=== PATIENT | female | born 1950 | race Caucasian/White ===

== ENCOUNTER 2016-11-01 10:32 | Emergency (ER) | payer MEDICARE, MEDICAID ==
[~2016-11-01] VITALS: Ht 167.6 cm; Wt 65.0 kg
[~2016-11-01 10:32] MED LIST: ALENDRONATE70 MG PO; ALPRAZOLAM0.5 MG PO; AMBIEN5 MG PO; BACTRIM DS1 TAB PO; CELEBREX100 M1 PO; CIPRO XR500 MG PO; CITRATE OF MEGNESIA PO; DILAUDID 2MG2 MG/TA1 PO; ERYTHROMYCIN250 MG PO; FLAGYL500 MG PO; FLEXERIL10 MG PO; FLEXERIL5 MG PO; GOLYTELY4000 ML PO; HYDROCODONE/ACE1 TAB PO; LORTAB 10 OR; LORTAB 5/3255 MG PO; LORTAB 7.5 OR; LORTAB 7.5 PO; LORTAB5 PO; LUNESTA1 MG PO; LYRICA75 MG PO; MEDDOSEPAK OR; MILK OF MAG30 ML/UDC PO; MULTI VIT PO; MULTIVITAMIN OR; NEOMYCIN500 MG PO; NO CURRENT MEDS; NO HOME MEDS; PAROXETINE20 MG PO; PREDNISONE10 MG PO; PREVACID30 M3 PO; PROBIOTIC DAILY1 CAP PO; PROMETHAZINE12.5 MG OR; REQUIP0.5 MG PO; TIZANIDINE HCL2 M1 PO; TRAMADOL HCL50 MG PO; ULTRAM50 M1 PO; ULTRAM50 MG OR; ZOFRAN ODT4 MG PO; ZOFRAN ODT8 MG OR
[2016-11-01 11:44] LABS: HEMATOCRIT 43.2 % (37.0-47.0); HEMOGLOBIN 13.3 g/dl (12.0-16.0); IMMATURE GRANULOCYTES 0.4 % (0.0-1.0); MEAN CELL VOLUME 78.5 fL CALC (80.0-100.0); MEAN CORPUSCULAR HGB 24.2 pG CALC (26.0-32.0); MEAN CORPUSCULAR HGB CONC 30.8 g/L CALC (32.0-36.0); NEUT# 5.87 thou/uL (2.00-7.15); RED BLOOD COUNT 5.5 mill/uL (4.20-5.60); RED CELL DISTRI WIDTH 16.8 % (11.5-15.5)
[2016-11-01 11:54] LABS: INTERNATIONAL NORMALIZED RATIO 0.9 RATIO (0.7-1.3); PROTHROMBIN TIME 10.2 SECONDS (9.0-12.5)
[2016-11-01 11:55] LABS: ALKALINE PHOSPHATASE 76 u/l (38-126); ANION GAP 16 (6-22 (CALC)); BUN 16 mg/dL (8-23); BUN/CREATININE RATIO 29 (12-20 (CALC)); CARBON DIOXIDE 24 mmol/l (22-30); CHLORIDE 104 mmol/l (95-108); CREATININE 0.6 mg/dL (0.5-1.0); GFR > 60 ML/MIN (>=60 (CALC)); GFR FOR AFR.AMER. > 60 ML/MIN (>=60 (CALC)); GLUCOSE 87 mg/dL (82-115); LIPASE 36 u/l (23-300); POTASSIUM 3.7 mmol/l (3.5-5.1); SGOT/AST 43 u/l (9-36); SGPT/ALT 56 u/l (11-66); SODIUM 140 mmol/l (137-146); TOTAL PROTEIN 7.6 g/dL (6.3-8.2)
[2016-11-01 12:07] LABS: MYOGLOBIN 37 ng/mL (0 - 62)
[2016-11-01 15:56] LABS: URINE BILIRUBIN - DIPSTICK NEGATIVE (NEGATIVE); URINE BLOOD DIPSTICK NEGATIVE (NEGATIVE); URINE CLARITY CLEAR; URINE COLOR YELLOW; URINE GLUCOSE - DIPSTICK NEGATIVE (NEGATIVE); URINE KETONE 40 mg/dL (NEGATIVE); URINE LEUK ESTERASE NEGATIVE (NEGATIVE); URINE NITRITE - DIPSTICK NEGATIVE (Negative); URINE PROTEIN - DIPSTICK NEGATIVE (NEG-TRACE); URINE SPECIFIC GRAVITY <=1.005; URINE UROBILINOGEN - DIPSTICK 0.2 E.U./dL (0.2)
[2016-11-01 19:43] VITALS: BP 147/65
== END 2016-11-01 19:43 | disposition other institution (70) ==
LOC: ED 10:32
PROVIDERS: Emergency Medicine
DX: R00.2 Palpitations (principal); R10.10 Upper abdominal pain, unspecified; R11.2 Nausea with vomiting, unspecified; J98.2 Interstitial emphysema; R07.81 Pleurodynia; Z85.038 Personal history of other malignant neoplasm of large intestine; Z98.890 Other specified postprocedural states
CPT/HCPCS: Q9967

== ENCOUNTER 2017-09-30 23:55 | Inpatient (IN) | payer MEDICARE, MEDICAID ==
[~2017-09-30] VITALS: Ht 167.6 cm; Wt 69.4 kg
[2017-10-01] VITALS (9 sets, daily range): BP systolic 110–147; BP diastolic 68–95
--- NOTE | 2017-10-01 00:10 | NUR ---
PT IMMEDIATLY BROOUGHT TO TX RM 10, MADE COMFORTABLE. MD AT BEDSIDE FOR EVALUATION.
[2017-10-01 00:44] LABS: HEMATOCRIT 44.2 % (37.0-47.0); HEMOGLOBIN 13.7 g/dl (12.0-16.0); IMMATURE GRANULOCYTES 0.4 % (0.0-1.0); MEAN CORPUSCULAR HGB 25.4 pG CALC (26.0-32.0); NEUT# 10.42 thou/uL (2.00-7.15); RED BLOOD COUNT 5.39 mill/uL (4.20-5.60); RED CELL DISTRI WIDTH 15.8 % (11.5-15.5)
--- NOTE | 2017-10-01 00:45 | NUR ---
A/O F WITH EPIGASTRIC ABD PAIN VOMITED X1 AT 4OM,HX BOWEL OBST AND CA COLON.PAIN FEELS LIKE BOWEL OBST
[2017-10-01 01:06] LABS: ALBUMIN 4.2 g/dL (3.2-5.0); ALKALINE PHOSPHATASE 112 u/l (38-126); AMYLASE 61 u/l (30-110); ANION GAP 20 (6-22 (CALC)); BILIRUBIN, TOTAL 0.4 mg/dL (0.0-1.4); BUN 21 mg/dL (8-23); BUN/CREATININE RATIO 29 (12-20 (CALC)); CARBON DIOXIDE 22 mmol/l (22-30); CHLORIDE 105 mmol/l (95-108); CREATININE 0.7 mg/dL (0.5-1.0); GFR > 60 ML/MIN (>=60 (CALC)); GFR FOR AFR.AMER. > 60 ML/MIN (>=60 (CALC)); LIPASE 103 u/l (23-300); POTASSIUM 4.5 mmol/l (3.5-5.1); SGOT/AST 29 u/l (9-36); SGPT/ALT 28 u/l (11-66); SODIUM 142 mmol/l (137-146); TOTAL PROTEIN 7.3 g/dL (6.3-8.2)
[2017-10-01 01:16] LABS: URINE BILIRUBIN - DIPSTICK NEGATIVE (NEGATIVE); URINE BLOOD DIPSTICK NEGATIVE (NEGATIVE); URINE COLOR YELLOW; URINE GLUCOSE - DIPSTICK NEGATIVE (NEGATIVE); URINE KETONE TRACE mg/dL (NEGATIVE); URINE LEUK ESTERASE NEGATIVE (NEGATIVE); URINE NITRITE - DIPSTICK NEGATIVE (Negative); URINE PROTEIN - DIPSTICK NEGATIVE (NEG-TRACE); URINE SPECIFIC GRAVITY >=1.030; URINE UROBILINOGEN - DIPSTICK 0.2 E.U./dL (0.2)
[2017-10-01 01:35] LABS: URINE CLARITY CLEAR
--- NOTE | 2017-10-01 02:50 | NUR ---
PATIENT ARRIVED TO THE FLOOR IN STABLE CONDITION VIA STRETCHER AND ACCOMPANIED BY ED NURSE. PT WEIGHED AND SETTLED TO BED. PATIENT ORIENTED X 3. ORIENT PATIENT TO ROOM CALL SYSTEM. BED IN LOW POSITION AND CALL LIGHT IN REACH.
--- NOTE | 2017-10-01 03:37 | NUR ---
PHONE REPORT TO WES OQUENDO ON MS
--- NOTE | 2017-10-01 03:47 | NUR ---
PT RTRANSPORTED TO [facility] VIA STRETCHER IN STABLE CONDITION
--- NOTE | 2017-10-01 06:38 | NUR ---
MARTHA COMMUNICATED WITH DR WHALEY AND HE WAS MADE AWARE OF CONSULTATION. HE WILL SEE PT TODAY.
--- NOTE | 2017-10-01 07:45 | NUR ---
PT IS RELAXING IN BED HAS AMBUALTED TO THE BATHROOM. IV SITE IS FREE FROM REDNESS OR EDEMA. HR IS REG,PULSES ARE STRONG X4, ABD IS SOFT WITH ACTIVE BS. CONTINU TO OBSERVE AND MONITOR.,
--- NOTE | 2017-10-01 08:30 | NUR ---
IN TO VISIT WITH PT AND WILL TAKE HER TO OR TO PLACE NGT
--- NOTE | 2017-10-01 09:50 | NUR ---
PT TRANSFERRED VIA STRETCHER ACCOMPANIED BY STAFF. TO OR , IV SITE IS FREE FROM REDNESS OR EDMEA.
--- NOTE | 2017-10-01 11:56 | NUR ---
SPOKE WITH PT'S DAUGHTER RE:PT AND INQUIRED HOW LONG AND IF THIS WAS A TYPICAL PROCEDURE TO TAKE CARE OF SBO. PRIOR TO HAVING INVASIVE SURGERY,
--- NOTE | 2017-10-01 13:00 | NUR ---
PT RETURNED FROM OR AND THEN WENT FOR XRAY. TO BE COMPLETED: IV SITE WAS WORKING WELL CONTINUE TO OBSERVE AND MONITOR.
--- NOTE | 2017-10-01 13:15 | NUR ---
PT RECEIVED AN NGT IN LEFT NARE THRU THE OR AND WAS ATTEMPTED IN ENDO UNABLE TO OBTAIN. WILL BE AT [facility].
--- NOTE | 2017-10-01 15:03 | NUR ---
PT'S DAUGHTER CALLED AND INQUIRED ABOUT PT. IV SITE IS FREE FROM REDNESS OR EDEMA. CONTINUE TO OBSERVE AND MONITOR.
--- NOTE | 2017-10-01 16:00 | NUR ---
PT IS RELAXING IN BED WITH NO DISTRESS NOTED. IV SITE BEGAN TO LEAK WAS CHANGED BY Rubén DAMON RN TO RFA WITH #22. CONTINUE TO OBSERVE AND MONITOR.
--- NOTE | 2017-10-01 19:10 | NUR ---
REPORT RECIEVED; PT RESTING IN BED WITH NG TUBE CLAMPED IN THE LEFT NARE. PT DENIES PAIN OR DISCOMFORT. IV PATENT; NO REDNESS OR EDEMA NOTED. TELE IN PLACE. PT ENCOURAGED TO CALL FOR ASSISTANCE. SAFETY PRECAUTIONS REINFORCED. CALL LIGHT WITHIN REACH.
--- NOTE | 2017-10-01 21:00 | NUR ---
PT RESTING IN BED WITH EYES CLOSED. PT WOKE TO SPEECH. NG IN LEFT NARE CHECKED FOR PLACEMENT. NG SET TO LIS, MINIMAL YELLOW-GREENISH DRAINAGE NOTED. RESP EVEN AND UNLABORED; LUNGS CELAR BILAT. TELE IN PLACE. ABD SOFT; HYPOACTIVE BOWEL SOUNDS NOTED BILAT. PEDAL PULSES PALPATED BILAT. IV RFA PATENT; NO REDNESS OR EDEMA NOTED. SAFETY PRECAUTIONS REINFORCED. WILL CONTINUE TO MONITOR CLOSELY. PT EDUCATED ON NPO DIET. CALL LIGHT WITHIN REACH.
--- NOTE | 2017-10-01 22:01 | NUR ---
SPOKE WITH DR WHALEY, SMALL BOWEL SERIES IS COMPLETE, PENDING RESULTS. NO ORDERS GIVEN AT THIS TIME.
[2017-10-02] VITALS (7 sets, daily range): BP systolic 108–152; BP diastolic 67–94
--- NOTE | 2017-10-02 00:45 | NUR ---
RESP EVEN AND UNLABORED; NO DISCOMFORT NOTED. NG PATENT; MINIMAL YELLOW-GREENISH DRAINAGED NOTED. IV PATENT; NO REDNESS OR EDEMA NOTED. TELE IN PLACE. CALL LIGHT WITHIN REACH.
--- NOTE | 2017-10-02 02:00 | NUR ---
PT USED CALL LIGHT, PT ON BSC. PT WAS UNABLE TO MAKE IT TO BSC IN TIME, HAD LOOSE BM. ALL NEEDS ADDRESSED AT THIS TIME. PT ASSISTED BACK TO BED. PT DENIES PAIN OR DISCOMFORT. IV PATENT; NO REDNESS OR EDEMA NOTED. CALL LIGHT WITHIN REACH.
--- NOTE | 2017-10-02 04:00 | NUR ---
RESP EVEN AND UNLABORED; NO DISTRESS NOTED. TELE IN PLACE. IV PATENT; NO REDNESS OR EDEMA NOTED. NG PATENT. CALL LIGHT WITHIN REACH.
[2017-10-02 05:40] LABS: MEAN CELL VOLUME 82.7 fL CALC (80.0-100.0); MEAN CORPUSCULAR HGB 25.7 pG CALC (26.0-32.0); MEAN CORPUSCULAR HGB CONC 31.1 g/L CALC (32.0-36.0); RED BLOOD COUNT 4.51 mill/uL (4.20-5.60); RED CELL DISTRI WIDTH 16.1 % (11.5-15.5)
[2017-10-02 05:41] LABS: HEMATOCRIT 37.3 % (37.0-47.0); HEMOGLOBIN 11.6 g/dl (12.0-16.0)
[2017-10-02 05:45] LABS: ANION GAP 13 (6-22 (CALC)); BUN 6 mg/dL (8-23); BUN/CREATININE RATIO 9 (12-20 (CALC)); CARBON DIOXIDE 26 mmol/l (22-30); CHLORIDE 107 mmol/l (95-108); CREATININE 0.7 mg/dL (0.5-1.0); GFR > 60 ML/MIN (>=60 (CALC)); GFR FOR AFR.AMER. > 60 ML/MIN (>=60 (CALC)); MAGNESIUM 1.8 mg/dL (1.6-2.3); POTASSIUM 3.9 mmol/l (3.5-5.1); SODIUM 141 mmol/l (137-146)
--- NOTE | 2017-10-02 07:30 | NUR ---
BEDSIDE REPORT RECEIVED FROM AKANKSHA LINDSEY. PT SITTING UPRIGHT IN BED. SHAAN KLEIN TO LIWS. DENIES PAIN. REPORTING OF CONCERNS ENCOURAGED. CALL LIGHT REVIEWED AND IN REACH. PT STATES UNDERSTANDING.
--- NOTE | 2017-10-02 10:52 | NUR ---
NGT REMOVED PER DR. WHAELY. CLEAR LIQUIDS STARTED.
[2017-10-02] MEDS ORDERED: KLONOPIN1 MG PO (11:17)
[2017-10-02] MEDS ORDERED: EFFEXOR XR75 MG PO (12:45)
[2017-10-02] MEDS ORDERED: BUSPAR5 MG PO (12:46)
--- NOTE | 2017-10-02 12:46 | NUR ---
Attempted pt medrec. Pt is POOR HISTORIAN. Reviewed claim history and received med list from [facility] and [facility]. Med lists were completely different. Let nurse (Freddy) know. Completed med rec using med claim hx and pill description obtained from patient. PATIENT IS POOR HISTORIAN. [facility] med list: Trazodone 50 mg po qhs (NOT ADDED). Effexor XR 75 mg daily w/ dinner (ADDED). Buspar 5mg bid (ADDED but daily per pt). [facility] med list: Klonopin 1 mg po qhs prn sleep (ADDED pt uses q day). Paroxetine 10 mg (D/C'ed per claim hx). Ultram ER 100 mg (D/C'ed per claim hx). Wellbutrin SR 100 mg po daily (NOT ADDED).
--- NOTE | 2017-10-02 13:23 | NUR ---
DR. OSBORN IN TO SEE PT.
--- NOTE | 2017-10-02 16:38 | NUR ---
PT DENIES PAIN. NAUSEA RELIEVED BY RECENT [facility] ADMINISTRATION.
--- NOTE | 2017-10-02 20:00 | NUR ---
PT AWAKE IN BED. PT IS ALERT AND ORIENTED X3. PERRLA. RESP ARE EVEN AND UNLABORED. NO DISTRESS NOTED. LUNGS ARE CLEAR. HR REGULAR. TELE IN PALCE. PULSES PALPABLE THROUGHOUT. NO EDEMA NOTED. BS HYPOACTIVE. #22 RW NS @100CC/HR INFUSING. NO REDNESS OR EDEMA NOTED. CALL LIGHT IN REACH. WILL CONTINUE TO MONITOR
--- NOTE | 2017-10-02 21:50 | NUR ---
PT GIVEN A PUDDING TO TRY TO ADVANCE DIET. WILL CONTINUE TO MONITOR
--- NOTE | 2017-10-02 23:58 | NUR ---
PT RESTING IN BED WITH EYES CLOSED. AROUSES EASILY TO VERBAL STIMULI. PT REPORTS EATING PUDDING WITHOUT NAUSEA. WILL ADVANCE DIET AND CONTINUE TO MONITOR
--- NOTE | 2017-10-03 | NUR ---
PT RESTING IN BED WITH EYES CLOSED. RESP ARE EVEN AND UNLABORED. NO DISTRESS NOTED. WILL CONTINUE TO MONITOR
[2017-10-03 00:24] VITALS: BP 152/87
--- NOTE | 2017-10-03 04:10 | NUR ---
PT RESTING IN BED WITH EYES CLOSED. RESP ARE EVEN AND UNLABORED. NO DISTRESS NOTED. WILL CONTINUE TO MONITOR
[2017-10-03 04:15] VITALS: BP 145/87
[2017-10-03 06:37] LABS: HEMATOCRIT 37.7 % (37.0-47.0); HEMOGLOBIN 11.5 g/dl (12.0-16.0); MEAN CELL VOLUME 82.3 fL CALC (80.0-100.0); MEAN CORPUSCULAR HGB 25.1 pG CALC (26.0-32.0); MEAN CORPUSCULAR HGB CONC 30.5 g/L CALC (32.0-36.0); RED BLOOD COUNT 4.58 mill/uL (4.20-5.60); RED CELL DISTRI WIDTH 15.7 % (11.5-15.5)
--- NOTE | 2017-10-03 06:50 | NUR ---
REPORT RECEIVED FROM AZRA ALVAREZ. PT SLEEPING AT THIS TIME. CALL LIGHT WITHIN REACH.
[2017-10-03 06:53] LABS: ANION GAP 13 (6-22 (CALC)); BUN 4 mg/dL (8-23); BUN/CREATININE RATIO 7 (12-20 (CALC)); CARBON DIOXIDE 27 mmol/l (22-30); CHLORIDE 103 mmol/l (95-108); CREATININE 0.6 mg/dL (0.5-1.0); GFR > 60 ML/MIN (>=60 (CALC)); GFR FOR AFR.AMER. > 60 ML/MIN (>=60 (CALC)); MAGNESIUM 1.8 mg/dL (1.6-2.3); POTASSIUM 3.7 mmol/l (3.5-5.1); SODIUM 140 mmol/l (137-146)
[2017-10-03 07:53] VITALS: BP 156/85
--- NOTE | 2017-10-03 08:30 | NUR ---
PT SITTING UPRIGHT ON SIDE OF BED. DENIES PAIN. NO NAUSEA. EATING BREAKFAST. TOLERATING DIET THUS FAR. PLAN OF CARE DISCUSSED. PT STATES ANTICIPATION OF DISCHARGE. DISCHARGE PROCESS REVIEWED. REPORTING OF CONCERNS ENCOURAGED. PT STATES UNDERSTANDING.
--- NOTE | 2017-10-03 10:48 | NUR ---
PT REPORTS TOLERATION OF DIET ADVANCEMENT TO SOFT DIET FOR BREAKFAST. NO NAUSEA, NO ABDOMINAL PAIN.
[2017-10-03 11:00] VITALS: BP 151/80
--- NOTE | 2017-10-03 12:34 | NUR ---
DR. RHODES IN TO SEE PT.
--- NOTE | 2017-10-03 13:39 | NUR ---
Discharge instructions given. Patient verbalizes understanding of same. Discharged in stable condition via Wheelchair to Home with friend. All belongings sent with pt.
== END 2017-10-03 13:52 | disposition home or self-care (01) | DRG 389 ==
LOC: ED 23:55 → ED-I 10-01 02:49 → ED 10-01 03:26 → MS2 10-01 03:27
PROVIDERS: Emergency Medicine; Nurse Practitioner Family; ADMIT Internal Medicine; ATTEND Internal Medicine
PROC: 0D9680Z Drainage of Stomach with Drainage Device, Via Natural or Artificial Opening Endoscopic (ICD-10-PCS; principal; 2017-10-01)
PROC: 0D9670Z Drainage of Stomach with Drainage Device, Via Natural or Artificial Opening (ICD-10-PCS; 2017-10-01)
DX: K56.609 Unspecified intestinal obstruction, unspecified as to partial versus complete obstruction (principal); E87.2 Acidosis; F32.9 Major depressive disorder, single episode, unspecified; K21.9 Gastro-esophageal reflux disease without esophagitis; D64.9 Anemia, unspecified; D72.0 Genetic anomalies of leukocytes; D72.819 Decreased white blood cell count, unspecified; Z85.038 Personal history of other malignant neoplasm of large intestine; Z90.49 Acquired absence of other specified parts of digestive tract; Z79.52 Long term (current) use of systemic steroids
CPT/HCPCS: S0164

== ENCOUNTER 2018-07-22 06:55 | Day surgery (SDC) | payer MEDICARE ==
[~2018-07-22 06:55] MED LIST changes: +BUPROPION100 MG PO; +BUSPAR5 MG PO; +EFFEXOR XR75 MG PO; +KLONOPIN1 MG PO; +PROBIOTIC1 TAB PO
[2018-07-22 09:57] VITALS: BP 145/83
== END 2018-07-22 10:00 | disposition home or self-care (01) ==
LOC: ENDO 06:55
PROVIDERS: ATTEND Surgery
PROC: 0DBN8ZX Excision of Sigmoid Colon, Via Natural or Artificial Opening Endoscopic, Diagnostic (ICD-10-PCS; principal; 2018-07-22)
PROC: 0DBL8ZX Excision of Transverse Colon, Via Natural or Artificial Opening Endoscopic, Diagnostic (ICD-10-PCS; 2018-07-22)
DX: R19.7 Diarrhea, unspecified (principal); K57.30 Diverticulosis of large intestine without perforation or abscess without bleeding; Z85.038 Personal history of other malignant neoplasm of large intestine; Z90.49 Acquired absence of other specified parts of digestive tract

== ENCOUNTER 2020-03-04 15:13 | Emergency (ER) | payer MEDICARE ==
[~2020-03-04] VITALS: Ht 167.6 cm; Wt 65.0 kg
[2020-03-04] MEDS ORDERED: ESCITALOPRAM OX20 MG PO (16:09)
[2020-03-04 16:42] LABS: HEMATOCRIT 38.7 % (37.0-47.0); HEMOGLOBIN 11.8 g/dl (12.0-16.0); IMMATURE GRANULOCYTES 0.2 % (0.0-5.0); MEAN CELL VOLUME 81.3 fL CALC (80.0-100.0); MEAN CORPUSCULAR HGB 24.8 pG CALC (26.0-32.0); MEAN CORPUSCULAR HGB CONC 30.5 g/dL CAL (32.0-36.0); NEUT# 3.93 thou/uL (2.00-7.15); RED BLOOD COUNT 4.76 mill/uL (4.20-5.60); RED CELL DISTRI WIDTH 14.9 % (11.5-15.5)
[2020-03-04 16:46] LABS: ALBUMIN 3.8 g/dL (3.2-5.0); ALKALINE PHOSPHATASE 97 u/l (38-126); ANION GAP 13 (6-22 (CALC)); BILIRUBIN, TOTAL 0.2 mg/dL (0.0-1.4); BUN 19 mg/dL (8-23); BUN/CREATININE RATIO 28 (12-20 (CALC)); CARBON DIOXIDE 24 mmol/l (22-30); CHLORIDE 107 mmol/l (95-108); CREATININE 0.7 mg/dL (0.5-1.0); GFR > 60 ML/MIN (>=60 (CALC)); GFR FOR AFR.AMER. > 60 ML/MIN (>=60 (CALC)); POTASSIUM 3.7 mmol/l (3.5-5.1); SGOT/AST 27 u/l (9-36); SODIUM 139 mmol/l (137-146); TOTAL PROTEIN 6.5 g/dL (6.3-8.2)
[2020-03-04 17:01] LABS: MYOGLOBIN 41 ng/mL (0 - 62)
[2020-03-04 17:38] LABS: URINE BILIRUBIN - DIPSTICK NEGATIVE (NEGATIVE); URINE BLOOD DIPSTICK NEGATIVE (NEGATIVE); URINE COLOR YELLOW; URINE GLUCOSE - DIPSTICK NEGATIVE (NEGATIVE); URINE KETONE TRACE mg/dL (NEGATIVE); URINE LEUK ESTERASE NEGATIVE (NEGATIVE); URINE NITRITE - DIPSTICK NEGATIVE (Negative); URINE PROTEIN - DIPSTICK NEGATIVE (NEG-TRACE); URINE UROBILINOGEN - DIPSTICK 0.2 E.U./dL (0.2)
[2020-03-04] MEDS ORDERED: ONDANSETRON4 MG PO (18:08)
[2020-03-04 18:55] VITALS: BP 149/78
--- NOTE | 2020-03-06 09:47 | NUR ---
Patient called for Covid results. Advised patient that Covid results would not be back until tomorrow morning. patient c/o itchiness after taked medication for nausea that was prescribed for ED doctor. Patient denies difficulty breathing, SOB or other respiratory complaints. Patient states she saw NIKUNJ Samayoa this morning for the "itchiness" and was told her lungs sounded "fine." Advised patient to return to ED with any breathing issues or other urgent needs. Advised patient to drink fluids, and try to rest. Patient verbalized understanding.
--- NOTE | 2020-03-07 08:52 | NUR ---
Notified patient of negative Covid results. Advised her to return to ED with urgent needs.
== END 2020-03-04 19:30 | disposition home or self-care (01) ==
LOC: ED 15:13
PROVIDERS: Emergency Medicine
DX: B34.9 Viral infection, unspecified (principal); Z20.828 Contact with and (suspected) exposure to other viral communicable diseases

== ENCOUNTER 2021-01-16 08:25 | Day surgery (SDC) | payer MEDICARE ==
[~2021-01-16 08:25] MED LIST changes: +ESCITALOPRAM OX20 MG PO; +MAGNESIUM 400 M1 TAB PO; +OMEPRAZOLE20 MG PO; +ONDANSETRON4 MG PO; +VITAMIN D PO
[2021-01-16 10:58] VITALS: BP 133/78
--- NOTE | 2021-01-17 15:36 | NUR ---
PER PHYSICIAN, PATIENT NOTIFIED OF FINDINGS FROM PROCEDURE REPORT. PATIENT VERBALIZED UNDERSTANDING OF INFORMATION GIVEN. STATED TOLERATED PROCEDURE WELL, VOICED NO QUESTIONS, NO CONCERNS. PROCEDURE NOTE AND OFFICE NOTE FORWARDED TO PCP FOR CONTINUITY OF CARE.
== END 2021-01-16 11:20 | disposition home or self-care (01) ==
LOC: ENDO 08:25 → ORM 13:45
PROVIDERS: ATTEND Surgery
PROC: 0DJD8ZZ Inspection of Lower Intestinal Tract, Via Natural or Artificial Opening Endoscopic (ICD-10-PCS; principal; 2021-01-16)
DX: Z12.11 Encounter for screening for malignant neoplasm of colon (principal); K57.30 Diverticulosis of large intestine without perforation or abscess without bleeding; K64.8 Other hemorrhoids; Z90.49 Acquired absence of other specified parts of digestive tract; Z85.038 Personal history of other malignant neoplasm of large intestine

== ENCOUNTER 2023-12-26 06:29 | Day surgery (SDC) | payer MEDICARE ==
[~2023-12-26] VITALS: Ht 167.6 cm; Wt 54.4 kg
[~2023-12-26 06:29] MED LIST changes: +BUPROPION HCL150 MG PO; +IBUPROFEN600 MG PO
[2023-12-26] MEDS ORDERED: FAMOTIDINE 10MG/ML 2ML SDV IV ONE (06:54)
[2023-12-26] MEDS ORDERED: LACTATED RINGER'S 1,000 ML IV ONE (06:54)
[2023-12-26 08:49] VITALS: BP 126/74
[2023-12-26] MEDS ORDERED: PROPOFOL 200 MG/20 ML VIAL IV ONE (09:38)
[2023-12-26] MEDS ORDERED: LIDOCAINE HCL 2% 2ML SDV IV ONE (09:38)
== END 2023-12-26 09:16 | disposition home or self-care (01) ==
LOC: ENDO 06:29 → ORM 08:25 → ENDO 09:16 → ORM 10:55
PROVIDERS: ATTEND Internal Medicine Gastroenterology
PROC: 0DBL8ZX Excision of Transverse Colon, Via Natural or Artificial Opening Endoscopic, Diagnostic (ICD-10-PCS; principal; 2023-12-26)
DX: R63.4 Abnormal weight loss (principal); K63.5 Polyp of colon; K57.30 Diverticulosis of large intestine without perforation or abscess without bleeding; K64.8 Other hemorrhoids; Z85.038 Personal history of other malignant neoplasm of large intestine; Z90.49 Acquired absence of other specified parts of digestive tract

== ENCOUNTER 2024-04-05 10:41 | Day surgery (SDC) | payer MEDICARE ==
[~2024-04-05] VITALS: Ht 167.6 cm; Wt 52.2 kg
[2024-04-05] MEDS ORDERED: FAMOTIDINE 10MG/ML 2ML SDV IV ONE (11:26)
[2024-04-05] MEDS ORDERED: LACTATED RINGER'S 1,000 ML IV ONE (11:26)
[2024-04-05 13:27] VITALS: BP 150/90
[2024-04-05] MEDS ORDERED: LIDOCAINE HCL 2% 2ML SDV IV ONE (15:46)
[2024-04-05] MEDS ORDERED: GLYCOPYRROLATE 0.2 MG/ML IV ONE (15:46)
[2024-04-05] MEDS ORDERED: PROPOFOL 200 MG/20 ML VIAL IV ONE (15:46)
== END 2024-04-05 13:44 | disposition home or self-care (01) ==
LOC: ORM 10:41
PROVIDERS: ATTEND Internal Medicine Gastroenterology
PROC: 0D758ZZ Dilation of Esophagus, Via Natural or Artificial Opening Endoscopic (ICD-10-PCS; principal; 2024-04-05)
PROC: 0DB48ZX Excision of Esophagogastric Junction, Via Natural or Artificial Opening Endoscopic, Diagnostic (ICD-10-PCS; 2024-04-05)
PROC: 0DB78ZX Excision of Stomach, Pylorus, Via Natural or Artificial Opening Endoscopic, Diagnostic (ICD-10-PCS; 2024-04-05)
DX: K22.2 Esophageal obstruction (principal); K29.60 Other gastritis without bleeding; K44.9 Diaphragmatic hernia without obstruction or gangrene; K31.89 Other diseases of stomach and duodenum; K21.9 Gastro-esophageal reflux disease without esophagitis; F32.4 Major depressive disorder, single episode, in partial remission; Z85.038 Personal history of other malignant neoplasm of large intestine; Z86.010 Personal history of colon polyps